=== PATIENT | female | born 1980 | race Hispanic/Latino ===

== ENCOUNTER 2022-12-13 17:29 | Emergency (ER) | payer OTHER ==
[~2022-12-13] VITALS: Ht 152.4 cm; Wt 78.5 kg
[2022-12-13 17:49] VITALS: BP 144/90; PULSE 84; RESP 16; O2SAT 98
[2022-12-13 19:26] LABS: BASOPHILS # (AUTO) 0.05 K/uL (0.00-0.20); BASOPHILS % (AUTO) 0.6 % (0.0-5.0); EOSINOPHILS # (AUTO) 0.08 K/uL (0.00-0.70); IMMATURE GRANULOCYTE ABSOLUTE 0.04 K/uL (0-1); LYMPHOCYTES # (AUTO) 2.5 K/uL (1.0-4.8); LYMPHOCYTES % (AUTO) 32.1 % (21.0-51.0); MEAN CORPUSCULAR HEMOGLOBIN 28.4 pg (27.0-33.0); MEAN CORPUSCULAR HGB CONC 32.8 g/dL (32.0-36.0); MEAN CORPUSCULAR VOLUME 86.8 fL (79-99); MONOCYTES # (AUTO) 0.5 K/uL (0.1-1.0); MONOCYTES % (AUTO) 5.7 % (3.0-13.0); NEUTROPHILS # (AUTO) 4.7 K/uL (1.8-7.7); NEUTROPHILS % (AUTO) 60.1 % (40.0-77.0); PLATELET COUNT (AUTO) 266 K/uL (130-400); RED BLOOD CELL COUNT(AUTO) 4.61 MIL/uL (4.00-5.50); RED CELL DISTRIBUTION WIDTH 13.8 % (11.0-15.5); WHITE BLOOD COUNT (AUTO) 7.9 K/uL (4.8-10.8)
[2022-12-13] MEDS ORDERED: HYDROCODONE/ACETAMINOPHEN 5/325 MG TAB PO ONE (19:30)
[2022-12-13] MEDS ORDERED: DIAZEPAM 5 MG TABLET PO ONE (19:30)
[2022-12-13] MEDS ORDERED: ONDANSETRON ODT 4MG TAB SL ONE (19:30)
[2022-12-13] MEDS ORDERED: PREDNISONE 20 MG TABLET PO ONE (19:30)
[2022-12-13] MEDS ORDERED: IBUPROFEN 600 MG TABLET PO ONE (19:30)
[2022-12-13 19:39] LABS: POTASSIUM 3.6 mmol/L (3.5-5.1)
[2022-12-13 19:48] LABS: ALBUMIN 3.4 g/dL (3.5-5.0); BILIRUBIN,TOTAL 0.3 mg/dL (0.2-1.0); TOTAL PROTEIN, SERUM 7.5 g/dL (6.0-8.3)
[2022-12-13] MEDS ORDERED: METH-811 PO (21:47)
[2022-12-13] MEDS ORDERED: IBUP-2070 PO (21:47)
[2022-12-13] MEDS ORDERED: PRED20TA3 PO (21:47)
== END 2022-12-13 22:15 | disposition home or self-care (01) ==
LOC: EDH 17:29
DX: M54.2 Cervicalgia (principal); F43.20 Adjustment disorder, unspecified; I10 Essential (primary) hypertension; Z79.52 Long term (current) use of systemic steroids; Z90.49 Acquired absence of other specified parts of digestive tract
CPT/HCPCS: 36415; 71045; 80053; 84484; 85025